=== PATIENT | female | born 1945 | race Caucasian/White ===

== ENCOUNTER 2021-02-05 11:40 | Emergency (ER) | payer MEDICARE, SELFPAY ==
--- NOTE | ~2021-02-05 | XR_ITS ---
EXAMINATION: XR tibia fibula RT 2V DATE: 02/05/2021 12:12 INDICATION: Right lower leg injury post fall TECHNIQUE: Anteroposterior and lateral views of the right tibia and fibula were obtained. COMPARISON: None. FINDINGS: Alignment is normal. No fracture. Joint spaces are normal. Soft tissues are unremarkable. No evident right knee or ankle joint effusion. IMPRESSION: 1. . Negative right tibia/fibula radiographs. Reviewed, dictated and finalized at location A.
[2021-02-05 11:56] VITALS: BP 142/54; PULSE 61; RESP 16; TEMP 36.4; O2SAT 100
--- NOTE | 2021-02-05 12:28 | ED.LOWEXIN ---
HPI - Extremity Injury (Lower) General Chief Complaint: Extremity Injury, Lower Stated Complaint: rt leg injury Time Seen by Provider: 02/05/21 12:20 Source: patient and RN notes reviewed Mode of arrival: ambulatory (With cane) Limitations: no limitations History of Present Illness HPI Narrative: Patient presents today complaining of right leg injury. States she tripped over a threshold at her grandchild's home just prior to arrival, falling onto her right leg. She rates her pain 8/10 with weightbearing. She is ambulating with a cane. She did apply some ice prior to arrival, which did provide some relief. Denies numbness or tingling in the leg or foot. She is up-to-date on her tetanus vaccine MD complaint: leg injury Related Data Home Medications Medication Instructions Recorded Confirmed abaloparatide [Tymlos] 80 mcg SUBCUT DAILY 02/05/21 02/05/21 amlodipine 02/05/21 atenolol 02/05/21 atorvastatin 02/05/21 gabapentin 02/05/21 levothyroxine 02/05/21 lisinopril-hydrochlorothiazide tablet 02/05/21 pantoprazole PO 02/05/21 tizanidine mg 02/05/21 trazodone 02/05/21 Allergies Allergy/AdvReac Type Severity Reaction Status Date / Time codeine Allergy Unknown Itching Verified 02/05/21 11:54 Sulfa (Sulfonamide Allergy Unknown Itching Verified 02/05/21 11:54 Antibiotics) Review of Systems Review of Systems: Narrative: CONSTITUTIONAL: Denies body aches, fever, chills, or sweats. EYES: Denies visual changes, redness, or discharge. ENT: Denies rhinorrhea, congestion, sore throat, or otalgia. CARDIOVASCULAR: Denies chest pain, palpitations, or edema. RESPIRATORY: Denies cough or dyspnea. GASTROINTESTINAL: Denies abdominal pain, nausea, vomiting, or diarrhea. GENITOURINARY: Denies dysuria or hematuria. SKIN: Denies rash, itching, or wounds. MUSCULOSKELETAL: Denies back pain, joint pain, or myalgia.+ Right lower leg injury NEUROLOGIC: Denies headache, numbness, tingling, or weakness. PSYCH: Denies depression or anxiety. [facility] Past Medical History Medical History (Updated 02/05/21 @ 13:33 by Falguni Gillespie, [facility], ) GERD (gastroesophageal reflux disease) Hypercholesterolemia Hypertension Hypothyroidism Mitral valve prolapse Neuropathy Osteoporosis Stress incontinence Surgical History Surgical History (Updated 02/05/21 @ 13:33 by Falguni Gillespie, [employer], ) H/O: hysterectomy History of appendectomy History of cholecystectomy Family History Family History (Updated 02/11/17 @ 13:27 by DOCTOR UNKNOWN) Other Family history of Alzheimer's disease Family history of cardiovascular disease Hypertension Social History Social History Smoking status: Never smoker Alcohol intake: current Comments At time of signature, I have reviewed and agree with nursing past medical, surgical, social and family history unless otherwise noted. Please see nursing chart for further information. There is no relevant family history pertinent to the presenting complaint Exam Narrative: Exam Narrative: GENERAL: Well-appearing, well-nourished, and in no acute distress. HEAD: Normocephalic, atraumatic. EYES: EOMI. No redness or drainage. Conjunctivae normal. ENT: Mucous membranes pink and moist. NECK: Normal AROM. . CHEST: No respiratory distress. EXTREMITIES: Right lower leg : 4 cm round slightly raised area of ecchymosis to the right anterior lower leg with 1.5 cm superficial linear abrasion in the center. Tender to palpation. Distal sensation intact. Capillary refill normal. Pedal pulse normal. Full range of motion of the knee and ankle without increased pain. SKIN: Warm, dry, no rash. Capillary refill normal. Normal skin turgor. NEURO: No focal deficits. Alert and oriented x3. Gait steady with cane. PSYCH: Normal affect. No signs of depression or anxiety. Course Vital Signs Vital signs: Vital Signs Temperature 97.6 F 02/05/21 11:56 Pulse Rate 61 02/05/21 11:56 Respi
== END 2021-02-05 12:38 | disposition home or self-care (01) ==
PROVIDERS: Emergency Provider Nurse Practitioner; PCP Internal Medicine
DX: S80.11XA Contusion of right lower leg, initial encounter (principal); S80.811A Abrasion, right lower leg, initial encounter; W22.09XA Striking against other stationary object, initial encounter; K21.9 Gastro-esophageal reflux disease without esophagitis; E78.00 Pure hypercholesterolemia, unspecified; I10 Essential (primary) hypertension; E03.9 Hypothyroidism, unspecified; I34.1 Nonrheumatic mitral (valve) prolapse; M81.0 Age-related osteoporosis without current pathological fracture; G62.9 Polyneuropathy, unspecified
CPT/HCPCS: 73590; 99213; G0463

== ENCOUNTER 2022-10-08 01:33 | Day surgery (SDC) | payer MEDICARE, SELFPAY ==
[2022-10-01 10:56] VITALS: BMI 24.5
--- NOTE | 2022-10-05 20:58 | PM.HPGS ---
History of Present Illness History of Present Illness Consent: Risks, benefits, and alternatives have been discussed and questions answered. Patient agrees to proceed with procedure. Chief complaint: diarrhea Narrative: Tressa Harman is a 77 year old female who was referred for investigation of diarrhea . Most of her life she had been chronically constipated. About 2 months ago she began having alternating loose stools for few days and then becoming constipated again. And she developed left lower quadrant pain and was diagnosed with diverticulitis. She took antibiotics and after about 5 days was feeling much better. Review of Systems Review of Systems: All systems reviewed & are unremarkable except as noted in HPI and below PMFSH Past Medical History Medical History GERD (gastroesophageal reflux disease) Hypercholesterolemia Hypertension Hypothyroidism Mitral valve prolapse Neuropathy Osteoporosis Stress incontinence Surgical History Surgical History H/O: hysterectomy History of appendectomy History of cholecystectomy Family History Family History Other Family history of Alzheimer's disease Family history of cardiovascular disease Hypertension Social History Social History Smoking status: Never smoker Alcohol intake: current Living arrangements: with family Meds Home Medications and Allergies Home Medications Medication Instructions Recorded Confirmed Type atorvastatin 10 mg tablet 10 mg PO DAILY 02/05/21 10/08/22 History levothyroxine 50 mcg tablet 50 mcg PO DAILY 02/05/21 10/08/22 History pantoprazole 40 mg tablet,delayed 40 mg PO DAILY 02/05/21 10/08/22 History release allopurinol 100 mg tablet 100 mg PO DAILY 10/01/22 10/08/22 History calcitriol 0.25 mcg capsule 0.25 mcg PO DAILY 10/01/22 10/08/22 History denosumab 60 mg/mL subcutaneous 60 mg subcut [id number] 10/01/22 10/08/22 History syringe (Prolia) ergocalciferol (vitamin D2) 1,250 1,250 mcg PO WEEKLY 10/01/22 10/08/22 History mcg (50,000 unit) capsule (Vitamin D2) furosemide 20 mg tablet 20 mg PO DAILY 10/01/22 10/08/22 History gabapentin 300 mg tablet 300 mg PO DAILY 10/01/22 10/08/22 History Allergies Allergy/AdvReac Type Severity Reaction Status Date / Time codeine Allergy Unknown Itching Verified 10/08/22 09:13 Sulfa (Sulfonamide Allergy Unknown Itching Verified 10/08/22 09:13 Antibiotics) Exam Resp: Auscultation: clear to auscultation bilaterally Cardio: Rate: regular rate Rhythm: regular rhythm GI: GI Palp: Yes Soft to palpation, Yes Tenderness to palpation present (GI) ( Mildly tender left lower quadrant), No Guarding due to palpation present (GI) and Yes No hepatosplenomegaly present Assessment and Plan Assessment and plan (1) Chronic diarrhea: Code(s): K52.9 - Noninfective gastroenteritis and colitis, unspecified Status: Acute Assessment and Plan: Colonoscopy with possible biopsy or polypectomy or cautery or injection of substances.
--- NOTE | 2022-10-07 09:32 | WPDANESEPPF ---
Anes - Initial Pre Proc Eval Procedure: Operation Date: 10/08/22 10:30 Proposed Procedures p Colonoscopy - Eric Fields MD Date/Time: 10/07/22 09:32 Surgeon: Eric Fields MD Pre Op Diagnosis: diarrhea Patient Data Age: 77 Gender: F Height: 1.5 m Weight: 55 kg Allergies Allergy/AdvReac Type Severity Reaction Status Date / Time codeine Allergy Unknown Itching Verified 10/08/22 09:13 Sulfa (Sulfonamide Allergy Unknown Itching Verified 10/08/22 09:13 Antibiotics) Home Medications Medication Instructions Recorded Confirmed Type atorvastatin 10 mg tablet 10 mg PO DAILY 02/05/21 10/08/22 History levothyroxine 50 mcg tablet 50 mcg PO DAILY 02/05/21 10/08/22 History pantoprazole 40 mg tablet,delayed 40 mg PO DAILY 02/05/21 10/08/22 History release allopurinol 100 mg tablet 100 mg PO DAILY 10/01/22 10/08/22 History calcitriol 0.25 mcg capsule 0.25 mcg PO DAILY 10/01/22 10/08/22 History denosumab 60 mg/mL subcutaneous 60 mg subcut [id number] 10/01/22 10/08/22 History syringe (Prolia) ergocalciferol (vitamin D2) 1,250 1,250 mcg PO WEEKLY 10/01/22 10/08/22 History mcg (50,000 unit) capsule (Vitamin D2) furosemide 20 mg tablet 20 mg PO DAILY 10/01/22 10/08/22 History gabapentin 300 mg tablet 300 mg PO DAILY 10/01/22 10/08/22 History Patient hx anesthesia problems: none Family hx anesthesia problems: none Results Review: All pre-operative results and documents have been reviewed as part of the pre-operative evaluation. [facility] Past Medical History Medical History (Updated 10/05/22 @ 20:59 by Eric Fields MD) GERD (gastroesophageal reflux disease) Hypercholesterolemia Hypertension Hypothyroidism Mitral valve prolapse Neuropathy Osteoporosis Stress incontinence Surgical History Surgical History (Updated 02/05/21 @ 13:33 by Falguni Gillespie, [facility], ) H/O: hysterectomy History of appendectomy History of cholecystectomy Family History Family History (Updated 02/11/17 @ 13:27 by DOCTOR UNKNOWN) Other Family history of Alzheimer's disease Family history of cardiovascular disease Hypertension Social History Social History Smoking status: Never smoker Alcohol intake: current Living arrangements: with family Cintia Barbosa Final PreProcedure Day of Procedure 10/07/22 09:32 Patient weight: normal Heart: regular rate and rhythm Lungs: clear to auscultation and normal air movement Airway: Mallampati scale class II Neurological: alert and oriented Last oral intake: >/= 8 hours ASA classification: II Emergent: no Anesthetic plan: proceed Anesthesia type and monitoring: general GIVS Results Review: All pre-operative results and documents have been reviewed as part of the pre-operative evaluation. Informed Consent: The patient's anesthetic plan and its attendant risks and benefits were discussed with the patient/family/POA. Questions were solicited and answers provided to the satisfaction of the patient/family/POA.
[2022-10-08 09:16] VITALS: BP 165/85; PULSE 77; RESP 16; TEMP 36.5; O2SAT 100
[2022-10-08] MEDS: LACTATED RINGERS 1,000 ML 150 ML IV CONT (09:34)
[2022-10-08 10:58] VITALS: BP 111/69; PULSE 68; RESP 16; O2SAT 100
[2022-10-08 11:08] VITALS: BP 145/75; PULSE 67; RESP 16; O2SAT 100
[2022-10-08 11:18] VITALS: BP 163/82; PULSE 67; RESP 16; O2SAT 99
== END 2022-10-08 11:34 | disposition home or self-care (01) ==
PROVIDERS: PCP Internal Medicine; Visit Provider Internal Medicine Gastroenterology
PROC: 0DJD8ZZ Inspection of Lower Intestinal Tract, Via Natural or Artificial Opening Endoscopic (ICD-10-PCS; CPT 45378; principal; 2022-10-08 10:30)
DX: R19.7 Diarrhea, unspecified (principal); K59.00 Constipation, unspecified; K63.5 Polyp of colon; K57.30 Diverticulosis of large intestine without perforation or abscess without bleeding; Z87.19 Personal history of other diseases of the digestive system; I10 Essential (primary) hypertension; E03.9 Hypothyroidism, unspecified; E78.00 Pure hypercholesterolemia, unspecified; I34.1 Nonrheumatic mitral (valve) prolapse; K21.9 Gastro-esophageal reflux disease without esophagitis; M81.0 Age-related osteoporosis without current pathological fracture; G62.9 Polyneuropathy, unspecified
CPT/HCPCS: 45380; 88305; J2001; J2704; J7120

== ENCOUNTER 2024-07-10 03:00 | Day surgery (SDC) | payer MEDICARE, SELFPAY ==
--- NOTE | 2024-07-05 17:12 | PM.IMHP ---
H&P: HPI History of Present Illness Date/Time: 07/05/24 17:12 Chief Complaint: UUI Narrative: UUI successful trial on SNS Review of Systems Review of Systems: All systems reviewed & are unremarkable except as noted in HPI and below PMFSH Past Medical History Medical History GERD (gastroesophageal reflux disease) Hypercholesterolemia Hypertension Hypothyroidism Mitral valve prolapse Neuropathy Osteoporosis Stress incontinence Surgical History Surgical History H/O: hysterectomy History of appendectomy History of cholecystectomy Family History Family History Other Family history of Alzheimer's disease Family history of cardiovascular disease Hypertension Social History Social History Smoking status: Never smoker Alcohol intake: current Living arrangements: with family Meds Home Medications and Allergies Home Medications Medication Instructions Recorded Confirmed Type atorvastatin 10 mg tablet 10 mg PO DAILY 02/05/21 10/08/22 History levothyroxine 50 mcg tablet 50 mcg PO DAILY 02/05/21 10/08/22 History pantoprazole 40 mg tablet,delayed 40 mg PO DAILY 02/05/21 10/08/22 History release allopurinol 100 mg tablet 100 mg PO DAILY 10/01/22 10/08/22 History calcitriol 0.25 mcg capsule 0.25 mcg PO DAILY 10/01/22 10/08/22 History denosumab 60 mg/mL subcutaneous 60 mg subcut [id number] 10/01/22 10/08/22 History syringe (Prolia) ergocalciferol (vitamin D2) 1,250 1,250 mcg PO WEEKLY 10/01/22 10/08/22 History mcg (50,000 unit) capsule (Vitamin D2) furosemide 20 mg tablet 20 mg PO DAILY 10/01/22 10/08/22 History gabapentin 300 mg tablet 300 mg PO DAILY 10/01/22 10/08/22 History Allergies Allergy/AdvReac Type Severity Reaction Status Date / Time codeine Allergy Unknown Itching Verified 10/08/22 09:13 Sulfa (Sulfonamide Allergy Unknown Itching Verified 10/08/22 09:13 Antibiotics) Exam Narrative: NAD A+O x3 Assessment and Plan Assessment and plan (1) Urge incontinence: Code(s): N39.41 - Urge incontinence Status: Acute Assessment and Plan: InterStim implant
[2024-07-06 09:30] VITALS: BMI 23.3
--- NOTE | 2024-07-06 09:36 | PC.NURSE ---
Report to the Outpatient Waiting Room, entrance under the green pavilion located off [facility], at time _0700_ on date _[id number]_. Planned Procedure Time: _0900_.? Time changes happen often and if your time is changed the preop area will call you the afternoon before. - You and your visitor will be asked to self-screen and do not enter if you have any COVID symptoms. Please call surgeon if you need to reschedule. - A mask is optional within the hospital at this time. Patients may have clear liquids (water, carbonated beverages, clear teas, apple juice) until 3 hours prior to surgery with a maximum of 20 ounces. - No food from midnight until time of surgery and no smoking Take only the following medications with a SIP of water on the morning of surgery: ___Levothyroxine and Gabapentin DO NOT STOP ANY OF YOUR OTHER PRESCRIPTION MEDICATIONS PRIOR TO SURGERY EXCEPT THE FOLLOWING Medications to discontinue per physician None Please no make-up, nail korean, hairspray, perfume, deodorant, or body powder the day of surgery.? No jewelry (including any body piercings) or valuables the day of surgery, leave them at home.? Please take a shower or bath the night before, or the morning of, surgery with an antibacterial soap.? Wear comfortable, loose fitting clothing.? - Jewelry must be removed prior to entering the operating room.? Rings and piercings that are not removed may be cut off. - The hospital will not accept responsibility for valuables.? - Please leave all valuables, including medications, at home the day of surgery. If you are going home after surgery, a licensed swing driver must drive you home.? - NO public transportation without another adult if you receive anesthesia. - We recommend that an adult stay with you for 24 hours following discharge. - We also recommend that you do not drive, make important decision, drink alcoholic beverages, or take any drugs that were not prescribed by your health care provider for at least 24 hours after your discharge time. Follow any additional instructions given to you from your surgeon. Telephone instructions given to __Tressa__and asked if any additional questions and then verbalized understanding. Patient advised to call surgeon office or pre surgery nurse liaison [phone] if any additional questions.
--- NOTE | ~2024-07-10 | XR_ITS ---
EXAMINATION: XR fluoroscopy no charge DATE: 07/10/2024 09:55 INDICATION: Urge incontinence. TECHNIQUE: 2 intraoperative fluoroscopic views of the pelvis were obtained. I was not present. Fluoro scopy exposure time was 66 seconds. COMPARISON: None. FINDINGS: There are changes of anterior posterior fusion procedures in lumbosacral spine. There is an electrode in an S3 neural foramen. There is no side marker. IMPRESSION: 1. Electrode in an S3 neural foramen. Reviewed, dictated and finalized at location A.
--- NOTE | 2024-07-10 04:37 | WPDHPUPDATE1 ---
History and Physical Update Update Date/Time: 07/10/24 04:37 History and Physical has been reviewed, including an updated exam of the patient. There are NO changes in the patient's condition. Risks, benefits, and alternatives have been discussed and questions answered. Patient agrees to proceed with procedure.
[2024-07-10] MEDS: LACTATED RINGERS 1,000 ML 30 ML IV CONT (07:50)
[2024-07-10 08:00] LABS: INR 0.9; Prothrombin Time 12.8 Seconds (11.1-14.7)
[2024-07-10 08:01] LABS: Anion Gap 7 mmol/L (4-12); Blood Urea Nitrogen 22 mg/dL (7-17); Calcium 9.4 mg/dL (8.4-10.2); Carbon Dioxide 29 mmol/L (22-30); Chloride 92 mmol/L (98-107); Estimated Glomerular Filt Rate 48; Glucose 80 mg/dL (65-110); Potassium 3.7 mmol/L (3.4-5.0); Sodium 128 mmol/L (137-145)
[2024-07-10 09:13] VITALS: BMI 23.2
[2024-07-10 09:17] VITALS: BP 162/77; PULSE 58; RESP 16; TEMP 36.8; O2SAT 99
--- NOTE | 2024-07-10 09:20 | WPDANESEPPF ---
Anes - Initial Pre Proc Eval Procedure: Operation Date: 07/10/24 09:00 Proposed Procedures p Neurostimulator Implant - Christophe Mattson MD Date/Time: 07/10/24 09:20 Surgeon: Christophe Mattson MD Pre Op Diagnosis: sensory urge incont Patient Data Age: 78 Gender: F Height: 1.5 m Weight: 52.2 kg Last Vital Signs Temp 98.3 F 07/10/24 09:17 Pulse 58 L 07/10/24 09:17 Resp 16 07/10/24 09:17 BP 162/77 H 07/10/24 09:17 Pulse Ox 99 07/10/24 09:17 O2 Del Method Room Air 07/10/24 09:17 Allergies Allergy/AdvReac Type Severity Reaction Status Date / Time codeine Allergy Unknown Itching Verified 07/10/24 09:09 Sulfa (Sulfonamide Allergy Unknown Itching Verified 07/10/24 09:09 Antibiotics) Home Medications Medication Instructions Recorded Confirmed Type atorvastatin 10 mg tablet 10 mg PO DAILY 02/05/21 07/06/24 History levothyroxine 50 mcg tablet 50 mcg PO DAILY 02/05/21 07/06/24 History pantoprazole 40 mg tablet,delayed 40 mg PO DAILY 02/05/21 07/06/24 History release allopurinol 100 mg tablet 100 mg PO DAILY 10/01/22 07/06/24 History calcitriol 0.25 mcg capsule 0.25 mcg PO DAILY 10/01/22 07/06/24 History denosumab 60 mg/mL subcutaneous 60 mg subcut [id number] 10/01/22 07/06/24 History syringe (Prolia) ergocalciferol (vitamin D2) 1,250 1,250 mcg PO WEEKLY 10/01/22 07/06/24 History mcg (50,000 unit) capsule (Vitamin D2) furosemide 20 mg tablet 20 mg PO DAILY PRN swelling 10/01/22 07/06/24 History gabapentin 300 mg tablet 300 mg PO DAILY 10/01/22 07/06/24 History Laboratory Tests 07/10/24 07:33 PT 12.8 Seconds (11.1-14.7) INR 0.9 APTT 26.0 Seconds (22.3-36.8) Sodium 128 L mmol/L (137-145) Potassium 3.7 mmol/L (3.4-5.0) Chloride 92 L mmol/L (98-107) Carbon Dioxide 29 mmol/L (22-30) Anion Gap 7 mmol/L (4-12) BUN 22 H mg/dL (7-17) Creatinine 1.10 H mg/dL (0.7-1.0) Estim Creat Clear Calc Not Reportable Estimated GFR 48 L (59 - ) Glucose 80 mg/dL (65-110) Calcium 9.4 mg/dL (8.4-10.2) Patient hx anesthesia problems: none Family hx anesthesia problems: none Results Review: All pre-operative results and documents have been reviewed as part of the pre-operative evaluation. [facility] Past Medical History Medical History GERD (gastroesophageal reflux disease) Hypercholesterolemia Hypertension Hypothyroidism Mitral valve prolapse Neuropathy Osteoporosis Stress incontinence Surgical History Surgical History H/O: hysterectomy History of appendectomy History of cholecystectomy Family History Family History Other Family history of Alzheimer's disease Family history of cardiovascular disease Hypertension Social History Social History Smoking status: Never smoker Alcohol intake: current Living arrangements: with family Spiritual care concerns: No Anes - Eval Final PreProcedure Day of Procedure 07/10/24 09:20 Patient weight: normal Heart: regular rate and rhythm Lungs: clear to auscultation Airway: Mallampati scale class II Neurological: alert and oriented Last oral intake: >/= 8 hours ASA classification: III Emergent: no Anesthetic plan: proceed Anesthesia type and monitoring: general GIVS and standard monitoring Results Review: All pre-operative results and documents have been reviewed as part of the pre-operative evaluation. HTN, hyperlipidemia, biotronik pacemaker, OA. Na 128 without symptoms. Discussed w family and Dr Mattson. Will proceed and have pt eval w PCP post op. Informed Consent: The patient's anesthetic plan and its attendant risks and benefits were discussed with the patient/family/POA. Questions were
[2024-07-10] MEDS: ceFAZolin 2 GM/D5W 50 ML 2 GM/50 ML BAG IVPB (09:26)
[2024-07-10] MEDS: BUPIVACAINE/EPINEPHRINE 0.5% 50 ML VIAL 20 ML INFILTRATE (09:35)
[2024-07-10 10:00] VITALS: BP 137/54; PULSE 60; RESP 16; O2SAT 97
--- NOTE | 2024-07-10 10:12 | W.PM.PROC2 ---
Procedure Note - Detailed Date of Procedure 07/10/24 Pre-op Diagnosis sensory urge incont Post-op Diagnosis Same Procedure Performed Implantation of sacral lead 57632 Placement of implantable pulse generator 43637 Complex neurostimulator programming impedance check [id number] Surgeon Christophe Mattson MD Anesthesia MAC and Local Indications This is a patient with refractory urge urinary incontinence. They have undergone a successful trial of sacral nerve stimulation. They present today for permanent implantation. They understand the risks of bleeding, infection, decreased efficacy, need for revision and battery changes. They agree to proceed Findings See dictated Description of Procedure They were correctly identified and informed consent was obtained. There brought to the operating room. There placed in the prone position. There given appropriate perioperative antibiotics. A time-out performed. I used fluoroscopy to neel out my sacral landmarks in the AP and the lateral orientation. I anesthetized the skin. I entered the S3 foramen. I monitored the needle with fluoroscopy. I got appropriate Cee and toe response at a low threshold. I made a skin ruben. I placed a stylet. I placed the lead introducer sheath. I thinned placed and deployed to my lead. I got appropriate responses again at a low threshold. I marked out the site of the pulse generator. I anesthetized the skin and made that incision. I created a subcutaneous pocket to house the pulse generator. I tunneled the lead towards this pocket. Appropriate connections were made between the lead and the battery. It was placed in the pocket. It was programmed and impedances were checked and found to be normal. I irrigated out all wounds. I ensured hemostasis. I closed the subcutaneous tissues with 2 Vicryl. I closed the skin with 4 0 Vicryl. Glue was applied. There then awakened and transferred to the PACU in stable condition. Implants Sacral neurostimulator Estimated Blood Loss 5 Drains No Packing No Pathology None sent Condition Stable Disposition PACU
[2024-07-10 10:30] VITALS: BP 150/61; PULSE 60; RESP 16
[2024-07-10] MEDS: oxyCODONE HCL (*CRX) 5 MG TAB IR PO (10:36)
[2024-07-10 11:00] VITALS: BP 154/65; PULSE 62; RESP 16
[2024-07-10 11:20] VITALS: BP 156/77; PULSE 60; RESP 16
== END 2024-07-10 11:30 | disposition home or self-care (01) ==
PROVIDERS: Anesthesiology; PCP Internal Medicine; Visit Provider Urology
PROC: (CPT 64561; principal; 2024-07-10 09:00)
DX: N39.41 Urge incontinence (principal); K21.9 Gastro-esophageal reflux disease without esophagitis; I10 Essential (primary) hypertension; E78.00 Pure hypercholesterolemia, unspecified; E03.9 Hypothyroidism, unspecified; M81.0 Age-related osteoporosis without current pathological fracture; Z90.710 Acquired absence of both cervix and uterus
CPT/HCPCS: 64561; 64590; 36415; 80048; 85610; 85730; 99199; A9270; C1767; C1778; C1787; J0690; J2405; J2704; J3010; J7120

== ENCOUNTER 2025-04-16 10:43 | Outpatient (CLI) | payer MEDICARE, SELFPAY ==
--- NOTE | ~2025-04-16 | MM_ITS ---
EXAMINATION: MM screening blanca BI w sherif HISTORY: Screening mammogram TECHNIQUE: Craniocaudal and mediolateral oblique 3-D tomosynthesis images were obtained and synthetic 2-D images were generated. CAD analysis was submitted and interpreted. COMPARISON: No prior mammogram is available for comparison at this institution. BREAST PARENCHYMAL COMPOSITION:Not Dense. There are scattered areas of fibroglandular density. FINDINGS: No suspicious mass, calcification, or architectural distortion are identified in either hellen ast to suggest malignancy. There has been no suspicious interval change. IMPRESSION: No mammographic evidence of malignancy. Recommend routine screening mammography in one year. BI-RADS Category 1: Negative Reviewed, dictated and finalized at location .
== END 2025-04-16 10:44 | disposition home or self-care (01) ==
LOC: ANHIMG 10:45
PROVIDERS: PCP Internal Medicine; Visit Provider Internal Medicine
DX: Z12.31 Encounter for screening mammogram for malignant neoplasm of breast (principal)
CPT/HCPCS: 77063; 77067